=== PATIENT | female | born 1940 | race Two or more races ===

== ENCOUNTER 2024-09-26 15:09 | Emergency (ER) | payer OTHER ==
[~2024-09-26] VITALS: Ht 157.5 cm; Wt 68.2 kg
[2024-09-26] MEDS ORDERED: DOXY-286 PO (18:39)
[2024-09-26] MEDS ORDERED: MUPI2CRE17 EX (18:39)
--- NOTE | 2024-09-26 18:45 | ED.PDOC ---
History of Present Illness HPI Comments 84-year-old female with a history of right sided breast cancer diagnosed about 1 year ago who took some kind of chemotherapy pill a few months ago now complains of some redness and swelling to the right lateral breast. No fevers. No discharge. Chief Complaint: Wound Check Time Seen by MD: 16:38 Primary Care Provider: JAMES Allergies: Coded Allergies: NO KNOWN ALLERGIES (Unverified , 09/26/24) Home Meds Active Scripts Mupirocin Calcium (Topical) (MUPIROCIN) 2 % Cre, 2 % EX BID for 10 Days, #1 CRE Prov:PARRIS LEWIS MD 09/26/24 Doxycycline Hyclate (DOXYCYCLINE HYCLATE) 100 Mg Tab, 1 TAB PO BID for 10 Days, #20 TAB Prov:PARRIS LEWIS MD 09/26/24 Information Source: Patient, Relative Mode of Arrival: Ambulatory Severity: Moderate Timing: Days Duration: Since onset Past Medical History Past Medical History (Other): breast cancer Family History Family History: Family hx of Cancer Integumetry: reports: change in color, lesions, lumps All Other Systems: Reviewed and Negative Physical Exam General Appearance: No Apparent Distress, Normal HEENT: Normal ENT Inspection, Pharynx Normal, TMs Normal Neck: Full Range of Motion, Non-Tender, Normal, Normal Inspection Respiratory: Chest Non-Tender, Lungs Clear, No Accessory Muscle Use, No Respiratory Distress, Normal Breath Sounds Cardiovascular: No Edema, No JVD, No Murmur, No Gallop, Normal Peripheral Pulses, Regular Rate/Rhythm Breast Exam: (R) Tenderness, Other (patchy right lateral breast erythema and swelling, no fluctuance) Gastrointestinal: No Organomegaly, Non Tender, No Pulsatile Mass, Normal Bowel Sounds, Soft Genitalia: Deferred Pelvic: Deferred Rectal: Deferred Extremities: No calf tenderness, Normal capillary refill, Normal inspection, Normal range of motion, Non-tender, No pedal edema Musculoskeletal : Apperance: Normal Neurologic: Alert, concaver II-XII nml as Tested, No Motor Deficits, Normal Affect, Normal Mood, No Sensory Deficits Cerebellar Function: Normal Reflexes: Normal Skin: Dry, Normal Color, Warm Lymphatic: No Adenopathy Was a procedure done? Was a procedure done?: No Differential Dx Considerations may include: Differential diagnosis includes but not limited to: cellulitis, abscess, lymphadenitis, breast cancer, nerve injury, vascular injury and others X-Ray, Labs, Meds, VS Vital Signs Date Time Temp Pulse Resp B/P (MAP) Pulse Ox O2 Delivery O2 Flow Rate FiO2 09/26/24 15:21 97.2 94 16 144/51 (82) 97 97.2 Time of 1ST Reevaluation: 18:44 Reevaluation 1ST: Unchanged Patient Education/Counseling: Diagnosis, Treatment Family Education/Counseling: Diagnosis, Treatment Departure 1 Departure Time of Disposition: 18:45 Impression: Primary Impression: Breast cancer, right Disposition: 01 HOME / SELF CARE / HOMELESS Condition: Stable Additional Instructions: Follow up with your Primary physician and Breast cancer specialist Return to the ED for any worsening symptoms or concerns e-Prescriptions Mupirocin Calcium (Topical) (MUPIROCIN) 2 % Cre 2 % EX BID for 10 Days, #1 CRE Prov: PARRIS LEWIS MD 09/26/24 Doxycycline Hyclate (DOXYCYCLINE HYCLATE) 100 Mg Tab 1 TAB PO BID for 10 Days, #20 TAB Prov: PARRIS LEWIS MD 09/26/24 Discharged With: Self, Relative Critical Care Note Critical Care Time?: No Stability Stability form required: No Heart Score Heart Score: Heart Score Response (Comments) Value History N/A 0 EKG N/A 0 Age N/A 0 Risk Factors N/A 0 Troponin N/A 0 Total 0 PARRIS LEWIS MD Sep 26, 2024 18:45
[2024-09-26 19:03] VITALS: BP 135/64; PULSE 83; RESP 20; TEMP 97.5; O2SAT 94
== END 2024-09-26 19:08 | disposition home or self-care (01) ==
LOC: ER 15:09
DX: C50.911 Malignant neoplasm of unspecified site of right female breast (principal); Z79.899 Other long term (current) drug therapy

== ENCOUNTER 2024-10-08 11:07 | Emergency (ER) | payer OTHER ==
[~2024-10-08] VITALS: Ht 154.9 cm; Wt 65.7 kg
[~2024-10-08 11:07] MED LIST: DOXY-286 PO; MUPI2CRE17 EX
[2024-10-08 11:09] VITALS: BP 147/85; RESP 16; TEMP 98.3; O2SAT 97
[2024-10-08 11:33] VITALS: PULSE 80
--- NOTE | 2024-10-08 11:45 | ECG ---
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
--- NOTE | 2024-10-08 11:58 | ED.PDOC ---
History of Present Illness HPI Comments 84 y/o F presents with c/o generalized weakness and confusion, today. Patient is a poor historian and endorses on having associated sensations of "falling" and "something not feeling right" regarding her thought and higher executive function processes. Patient reports history of right-breast cancer and is not on any chemotherapy or pending surgical intervention treatment for said cancer, currently. Patient admits to receiving a breast biopsy by her PCP, already. She informs of current Keflex, Doxycycline, and Neosporin ointment treatment placement by her PCP, with endorsement of using ointment on her "nodules" on the surface of her right breast. Patient denies any chest pain, shortness of breath, nausea, vomiting, urinary symptoms, fever, chills, or other associated symptoms or modifying factors at this time. Chief Complaint: General Weakness Time Seen by MD: 11:45 Primary Care Provider: JAMES Lorenzana Notes: Nurses Notes, Medications, Allergies Allergies: Coded Allergies: NO KNOWN ALLERGIES (Unverified , 09/26/24) Home Meds Active Scripts Mupirocin Calcium (Topical) (MUPIROCIN) 2 % Cre, 2 % EX BID for 10 Days, #1 CRE Prov:PARRIS LEWIS MD 09/26/24 Doxycycline Hyclate (DOXYCYCLINE HYCLATE) 100 Mg Tab, 1 TAB PO BID for 10 Days, #20 TAB Prov:PARRIS LEWIS MD 09/26/24 Information Source: Patient Mode of Arrival: Ambulatory Severity: Moderate Timing: Hours Duration: Since onset Prehospital treatment: None Past Medical History PAST MEDICAL HISTORY: Cancer (breast cancer, right) Surgical History: Denies all surgeries 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 Family History Family History: Family hx of Cancer Social History Smoker: Non-Smoker Alcohol: Denies ETOH Use Drugs: Denies Drug Use Lives In: Home All Other Systems: Reviewed and Negative (Comprehensive systems review obtained and negative except for what is stated in the HPI.) Physical Exam General Appearance: No Apparent Distress, Normal HEENT: Normal ENT Inspection, Pharynx Normal, TMs Normal Neck: Full Range of Motion, Non-Tender, Normal, Normal Inspection Respiratory: Chest Non-Tender, Lungs Clear, No Accessory Muscle Use, No Respiratory Distress, Normal Breath Sounds Cardiovascular: No Edema, No JVD, No Murmur, No Gallop, Normal Peripheral Pulses, Regular Rate/Rhythm Breast Exam: Deferred Gastrointestinal: No Organomegaly, Non Tender, No Pulsatile Mass, Normal Bowel Sounds, Soft Genitalia: Deferred Pelvic: Deferred Rectal: Deferred Extremities: No calf tenderness, Normal capillary refill, Normal inspection, Normal range of motion, Non-tender, No pedal edema Musculoskeletal : Apperance: Normal Neurologic: Alert, alterations workroom clerk II-XII nml as Tested, No Motor Deficits, Normal Affect, Normal Mood, No Sensory Deficits, Other (Cranial nerves 2 through 12 intact, 5/5 strength all extremities, sensation intact to light touch throughout, ambulating with a steady gait, normal [id number], no pronator drift) Cerebellar Function: NOT DONE Reflexes: NOT DONE Skin: Dry, Normal Color, Warm Lymphatic: No Adenopathy Was a procedure done? Was a procedure done?: No Differential Dx Considerations may include: viral syndrome, URI, UTI, electrolyte imbalance, dehydration, encephalopathy, among others X-Ray, Labs, Meds, VS Vital Signs Date Time Temp Pulse Resp B/P (MAP) Pulse Ox O2 Delivery O2 Flow Rate FiO2 10/08/24 11:33 80 10/08/24 11:09 98.3 79 16 147/85 (105) 97 98.3 Lab Test 10/08/24 14:40 10/08/24 11:26 Range/Units White Blood Count 6.5 4.4-10.8 10^3/uL Red Blood Count 4.18 4.0-5.20 10^6/uL Hemoglobin 12.6 12.2-16.2 g/dL Hematocrit 38.9 36.0-46.0 % Mean Corpuscular Volume 93.0 80.0-100.0 fL Mean Corpuscular Hemoglobin 30.0 28.0-32.0 pg Mean Corpuscular Hemoglobin Concent 32.3 32.0-36.0 g/dL Red Cell Distribution Width 15.3 H 11.8-14.3 % Platelet Count 390 140-450 10^3/uL Mean Platelet Volume 8.9 6.9-10.8 fL Neutrophils (%) (Auto) 57.2 37.0-80.0 % Lymphocytes (%) (Auto) 24.9 10.0-50.0 % Monocytes (%) (Auto) 15.2 H 0.0-12.0 % Eosinophils (%) (Auto) 0.4 0.0-7.0 % Basophils (%) (Auto) 2.3 H 0.0-2.0 % Neutrophils # (Auto) 3.7 1.6-8.6 10 ^3/uL Lymphocytes # (Auto) 1.6 0.4-5.4 10 ^3/uL Monocytes # (Auto) 1.0 0-1.3 10 ^3/uL Eosinophils # (Auto) 0 0-0.8 10 ^3/uL Basophils # (Auto) 0.2 0-0.2 10 ^3/uL Nucleated Red Blood Cells 0.2 % Sodium Level 137 136-145 mmol/L Potassium Level 4.5 3.5-5.1 mmol/L Chloride Level 103 98-107 mmol/L Carbon Dioxide Level 25 20-31 mmol/L Anion Gap 9 5-15 Blood Urea Nitrogen 33 H 9-23 mg/dL Creatinine 1.82 H 0.550-1.02 mg/dL Glomerular Filtration Rate Calc 27 >90 mL/min BUN/Creatinine Ratio 18.1 10.0-20.0 Serum Glucose 137 H 74-106 mg/dL Calcium Level 9.9 8.7-10.4 mg/dL Troponin I High Sensitivity 8 </=34 ng/L B-Type Natriuretic Peptide 75.09 0-100 pg/mL Lipase 54 H 12-53 U/L POC Glucose 120 H 70-106 mg/dl X-Ray, Labs, Meds, VS Comment 84-year-old female here today with the above complaints. Vital signs stable, afebrile. Physical exam as above without any acute findings. Neurologic exam unremarkable. Labs overall reassuring aside from a possible DIDIER with a creatinine of 1.8. EKG without evidence of acute ischemia. CT head scan without evidence of acute pathology as well. Given the patient's age and p resentation, I recommended to her that she stay in the hospital for further management and workup of her altered mental status and she was in agreement with this plan. Patient admitted to the medicine team for further management and evaluation of her altered mental status. Time of 1ST Reevaluation: 12:15 Reevaluation 1ST: Unchanged Patient Education/Counseling: Diagnosis, Treatment Family Education/Counseling: No Family Present Additional Information Previous medical encounters reviewed: September 26, 2024 encounter for breast cancer, right The following tests were ordered, and results were reviewed by me: EKG Additional Information was gathered from interviewing the following independent historians: N/A I reviewed and agreed with the following test results read by other providers: N/A I discussed treatment and results with medical personnel and: Patient Departure 1 Departure Time of Disposition: 15:22 Impression: Primary Impression: Altered mental status Additional Impressions: DIDIER (acute kidney injury) History of breast cancer Disposition: 02 SHORT TERM HOSPITAL Admit to: Tele Condition: Stable Critical Care Note Critical Care Time?: No Stability Stability form required: No Heart Score Heart Score: Heart Score Response (Comments) Value History N/A 0 EKG N/A 0 Age N/A 0 Risk Factors N/A 0 Troponin N/A 0 Total 0 KEISHA GARY Oct 08, 2024 11:58 JAMES ALEJANDRO MD Oct 08, 2024 15:43
[2024-10-08 14:48] LABS: Basophils # (auto) 0.2 10 ^3/uL (0-0.2); Basophils % (auto) 2.3 % (0.0-2.0); Eosinophils # (auto) 0 10 ^3/uL (0-0.8); Eosinophils % (auto) 0.4 % (0.0-7.0); Hematocrit 38.9 % (36.0-46.0); Hemoglobin 12.6 g/dL (12.2-16.2); Lymphocytes # (auto) 1.6 10 ^3/uL (0.4-5.4); Lymphocytes % (auto) 24.9 % (10.0-50.0); Mean Corpuscular Hgb Conc. 32.3 g/dL (32.0-36.0); Monocytes % (auto) 15.2 % (0.0-12.0); Neutrophils # (auto) 3.7 10 ^3/uL (1.6-8.6); Neutrophils % (auto) 57.2 % (37.0-80.0); Nucleated Red Blood Cells % 0.2 %; Platelet Count (auto) 390 10^3/uL (140-450); Red Blood Cells 4.18 10^6/uL (4.0-5.20); Red Cell Distribution Width 15.3 % (11.8-14.3); White Blood Cell 6.5 10^3/uL (4.4-10.8)
[2024-10-08 15:00] LABS: Chloride 103 mmol/L (98-107); Potassium 4.5 mmol/L (3.5-5.1); Sodium 137 mmol/L (136-145)
--- NOTE | 2024-10-08 15:00 | DVH ---
EXAM: CT HEAD WITHOUT CONTRAST INDICATION: ams TECHNIQUE: CT of the head without intravenous contrast. Radiation Dose Information: CT Dose: CTDI volume is 49.65 mGy. Dose-length product is 796.15 mGy*cm The dose indicators for CT are the volume Computed Tomography (CT) Dose Index (CTDIvol) and the Dose Length Product (DLP), and are measured in units of mGy and mGy-cm, respectively. These indicators are not patient dose, but values generated from the CT scanner acquisition factors. The report includes radiation exposure data for exposures received during this examination. COMPARISON: None FINDINGS: There is no evidence of acute intracranial hemorrhage, extra-axial collection, mass effect, midline s hift, herniation or hydrocephalus. The ventricles, sulci and cisterns are age appropriate. The pina-white differentiation is intact. Patchy periventricular and subcortical white matter hypoattenuation is nonspecific but may be related to small vessel ischemic disease. The visualized paranasal sinuses and mastoid air cells are clear. The surrounding soft tissues and osseous structures are unremarkable. IMPRESSION: 1. No acute intracranial hemorrhage. 2. No CT findings of territorial ischemia. HS:Y
[2024-10-08 15:01] LABS: Anion Gap 9 (5-15); Carbon Dioxide 25 mmol/L (20-31)
[2024-10-08 15:02] LABS: Calcium 9.9 mg/dL (8.7-10.4)
[2024-10-08 15:07] LABS: BUN/Creatinine Ratio 18.1 (10.0-20.0); Blood Urea Nitrogen 33 mg/dL (9-23); Glucose 137 mg/dL (74-106); Lipase 54 U/L (12-53)
== END 2024-10-08 18:30 | disposition left against medical advice (07) ==
LOC: ER 11:07
DX: R41.82 Altered mental status, unspecified (principal); N17.9 Acute kidney failure, unspecified; Z85.3 Personal history of malignant neoplasm of breast; R06.02 Shortness of breath
CPT/HCPCS: 36415; 70450; 80048; 82947; 82962; 83690; 83880; 84484; 85025; 93005